=== PATIENT | female | born 1990 | race Caucasian/White ===

== ENCOUNTER → 2022-02-08 14:39 | Outpatient (CLI) | payer MEDICAID, SELFPAY ==
[2022-02-08 16:26] LABS: Basophils # 0.2 K/mm3 (0-0.2); Basophils % 2.4 % (0.1-2.0); Eosinophils # 0.3 K/mm3 (0.0-0.4); Eosinophils % 4.5 % (0.1-12.0); Hematocrit 42.9 % (37.0-47.0); Hemoglobin 13.9 g/dL (12.2-16.2); Lymphocytes # 1.9 K/mm3 (0.7-4.5); Lymphocytes % 29.8 % (10-50); Mean Corpuscular HGB Conc 32.4 g/dL (31.8-35.4); Mean Corpuscular Hemoglobin 31.5 pg (27.0-31.2); Mean Corpuscular Volume 97.1 fl (81-99); Mean Platelet Volume 9.4 fl (7.4-10.4); Monocytes # 0.5 K/mm3 (0.1-1.0); Monocytes % 8.1 % (1.7-9.3); Neutrophils # 3.5 K/mm3 (1.8-7.8); Neutrophils % 55.2 % (37.0-80.0); Platelet Count 250 K/mm3 (142-424); Red Blood Count 4.42 M/mm3 (4.20-5.40); Red Cell Distribution Width 12.7 % (11.5-17.5); White Blood Count 6.3 K/mm3 (4.8-10.8)
[2022-02-08 17:44] LABS: Chloride 106 mmol/L (98-107); Sodium 140 mmol/L (136-145)
[2022-02-08 17:45] LABS: Potassium 4.2 mmoL/L (3.5-5.1)
[2022-02-08 17:47] LABS: Alanine Aminotransferase 126 U/L (12-78); Albumin Level 4.1 g/dl (3.5-5.0); Alkaline Phosphatase 81 U/L (38-126); Anion Gap 13.2 mEq/L (5-15); Aspartate Amino Transferase 99 U/L (14-36); Bilirubin,Total 0.8 mg/dl (0.2-1.3); Blood Urea Nitrogen 11 mg/dl (7-17); Carbon Dioxide 25 mmol/L (22.0-30.0); Estimated Glomerular Filt Rate 116 ml/min (>60); GFR (African American) 140 ML/MIN (>60)
[2022-02-08 17:48] LABS: Albumin/Globulin Ratio 1.3 (1.1-1.8); Calcium 8.7 mg/dl (8.4-10.2); Globulin 3.2 g/dL (1.3-3.2); Glucose 100 mg/dl (74-100); Total Protein,Serum 7.3 g/dl (6.3-8.2)
[2022-02-08 18:11] LABS: HCG,Quantitative < 2 mIU/ml (0-5.42)
== END ==
PROVIDERS: PCP Nurse Practitioner; Visit Provider Nurse Practitioner Obstetrics & Gynecology
DX: Z30.09 Encounter for other general counseling and advice on contraception (principal)
CPT/HCPCS: 36415; 80053; 84702; 85025

== ENCOUNTER 2022-02-15 06:07 | Day surgery (SDC) | payer MEDICAID, SELFPAY ==
[2022-02-15] VITALS (11 sets, daily range): BP systolic 124–154; BP diastolic 80–95; PULSE 70–91; RESP 12–20; TEMP 36.2–43; O2SAT 91–99; BMI 36.6
--- NOTE | 2022-02-15 08:30 | P.OP_ITS ---
Date of procedure: 02/15/22 Pre-op Diagnosis:: Desire for sterilization Post-op Diagnosis:: Desire for sterilization, omental adhesions Procedure performed:: Laparoscopic bilateral salpingectomy, lysis of adhesions Surgeon:: Yovany Ryan MD [employer]:: Addison Felder Anesthesia: GETA Estimated blood loss (mL): 25 Clinical Note:: She is a 31-year-old lady who expressed desire for sterilization. The risks and benefits as well as irreversibility of bilateral salpingectomy were discussed with the patient prior to surgery. Operative findings:: She had adhesions of the omentum to the anterior abdominal wall. There also appeared to be a diastases of the rectus muscles and fascia just above where the section scar would be. This was in the midline. The omentum was adherent to this area. The upper abdomen and rest rest of the pelvis appeared normal. The left tube had what appeared to be some adhesions to the pelvis and left ovary. They were filmy. Operative note:: She was taken to the operating room where general anesthesia was found be adequate. She was prepped and draped in normal sterile fashion in the semilithotomy position. A weighted speculum was placed in the vagina and the anterior lip of the cervix was grasped with a tenaculum. I then inserted a Mirna uterine manipulator into the cervical os. The balloon was then insufflated. I changed gloves and injected 10 cc of 0.5% ropivacaine around her umbilicus and made a small incision within the umbilicus. I inserted a Veress needle into the abdominal cavity. The peritoneal cavity was then insufflated with carbon dioxide gas to a pressure of 20 mmHg. I then inserted a 5 millimeter trocar under direct vision. I then identified the inferior epigastric arteries on the left side, went lateral to these and injected through and through. I placed a 5 mm trocar under direct vision. Using harmonic scalpel I then took down the adhesions of omentum to the anterior abdominal wall. I then inserted through and through the pubic hairline, made a small incision and inserted an 8 mm trocar under direct vision. I grasped the right tube at the cornua and using harmonic scalpel on coagulation mode I cut through the tube. I then grasped the distal tube and using harmonic scalpel cut along the mesosalpinx. The tube was removed through 8 mm trocar site. This was similarly performed on the patient's left side. I then injected 30 cc of 0.5% ropivacaine into the pelvis. After assuring hemostasis the gas was let out of the abdomen and hemostasis was once again assured. The abdomen was then reinsufflated. The secondary trochars were removed under direct vision. The gas was let out her abdomen. The primary trocar was then removed. The 8 mm trocar site was closed deeply with 2-0 Vicryl suture followed by subcuticular 4-0 Monocryl suture. The 5 mm trocar sites were closed with subcuticular 4-0 Monocryl. Sterile dressings were applied. The patient tolerated the procedure well and was taken to the recovery room in excellent condition. All sponge instrument and needle counts were correct. The estimated blood loss was less than 25 cc. Condition: stable Disposition: PACU Specimens:: Bilateral fallopian tubes Complications:: None
--- NOTE | 2022-02-15 08:31 | EXP.ANES.CKL ---
[facility] Disclaimer: The information contained in this section may have been updated after the patient was seen, as this information can be updated by other users. Medical History Hypertension Surgical History History of delivery Family History Mother TIA (transient ischemic attack) Mother COPD (chronic obstructive pulmonary disease) Social History (Updated 02/15/22 @ 06:22 by Oksana Wren RN) Smoking Status: Current every day smoker alcohol intake: never substance use type: denies use current occupational status: employed Travel in the last 8 weeks: None [facility] Anesthesia Checklist Patient Identification Patient Identification: Verbal (Name & ) Structural Data Admitted From: Home Planned Operative Procedure/s: lap salpingectomy Consent for Planned Operative Procedure(s) Verified: Yes NPO Status Verified Time NPO: 00:00 Additional verifications Anesthesia Reactions: No Hx Blood Transfusions: No Blood Transfusion Reaction: No Airway Assessment C-Spine Mobility Assessed: Yes TMJ Mobility Assessed: Yes Dentition: Good Dentition Neurological Assessment Level of Consciousness: Awake, Alert and Appropriate Anesthesia Plan Anesthesia Risk discussed: Yes Anesthesia Plan: Verified ASA Class: II Anesthesia Type: MAC
--- NOTE | 2022-02-15 08:32 | P.PNANES_ITS ---
[facility] Anesthesia Record Part I Anesthesia Record I Intake, IV Amount: 1,000 Estimated blood loss (mL): 25 Urine output (mL): 0 Blood Pressure: 138/84 SaO2: 94 Pulse Rate: 73 Respiratory Rate: 12 Temperature: 97.1 F Patient is:: Awake and Stable Stable to PACU at:: 08:25
--- NOTE | 2022-02-17 10:55 | P.PNANES_ITS ---
[facility] Anesthesia Record Part II Anesthesia Record Part II Discharge Time: 08:55 Destination: Surgical Day Care (OP Surgery) PACU nurse assessment reviewed?: Yes Patient Condition:: Good Anesthesia Complications:: None Swallowing reflex intact?: Yes Cyanosis?: No Blood Pressure: 131/87 Pulse Rate: 73 Temperature: 97.4 F Mental Status: Alert & Oriented Pain level:: 4 Nausea and/or vomitting:: None Intake, IV Amount: 0
[2022-02-17 10:56] VITALS: BP 131/87; PULSE 73; TEMP 36.3
== END 2022-02-15 09:35 | disposition home or self-care (01) ==
PROVIDERS: PCP Nurse Practitioner; Visit Provider Nurse Practitioner Obstetrics & Gynecology
PROC: (CPT 58661; principal; 2022-02-15 07:30)
DX: Z30.2 Encounter for sterilization (principal); K66.0 Peritoneal adhesions (postprocedural) (postinfection); Z72.0 Tobacco use
CPT/HCPCS: 58661; 49329; 96374; J2405; J2710